=== PATIENT | female | born 1995 | race Caucasian/White ===

== ENCOUNTER 2023-11-18 14:50 | Outpatient (CLI) | payer OTHER | END 2023-11-18 16:34 | disposition home or self-care (01) | LOC: NST 14:50 | PROVIDERS: ATTEND Obstetrics & Gynecology Gynecology | DX: Z34.83 Encounter for supervision of other normal pregnancy, third trimester (principal) ==

== ENCOUNTER 2023-12-11 14:22 | Inpatient (IN) | payer OTHER ==
[~2023-12-11] VITALS: Ht 157.5 cm; Wt 74.8 kg
[2023-12-11] MEDS ORDERED: RINGERS SOLUTION,LACTATED 1,000 ML IV SCH (14:45)
[2023-12-11] MEDS ORDERED: PRENATAL TABLE1 EAC4 PO (15:07)
[2023-12-11 15:23] LABS: HEMATOCRIT 33.4 % (36.0-45.00); HEMOGLOBIN 11.1 g/dL (12.0-15.00); MEAN CORPUSCULAR HEMOGLOBIN 27.8 pg (27.00-32.0); MEAN CORPUSCULAR HGB CONC 33.1 g/dl (32.0-36.0); PLATELET COUNT 284 K/uL (150-450); RED BLOOD COUNT 3.97 M/uL (4.00-6.00); RED CELL DISTRIBUTION WIDTH 13.9 % (11.5-14.5)
[2023-12-11] MEDS ORDERED: CITRIC ACID/SODIUM CITRATE 30 ML BLIST.PACK PO STA (15:32)
[2023-12-11 15:43] LABS: INR 0.95; PARTIAL THROMBOPLASTIN TIME 29.3 SECONDS (22.0-34.0); PROTHROMBIN TIME 10.4 SECONDS (9.0-11.5)
[2023-12-11 15:49] LABS: ALBUMIN 2.5 gm/dL (3.4-5.0); BILIRUBIN TOTAL 0.28 mg/dL (0.3-1.2); CALCIUM 8.8 mg/dL (8.5-10.1); CREATININE SERUM 0.49 mg/dL (0.55-1.02); GFR 150.38; POTASSIUM 3.89 mEq/L (3.5-5.1); TOTAL PROTEIN 6.5 gm/dL (6.4-8.2)
[2023-12-11] MEDS ORDERED: OXYTOCIN 10 UNITS/ML VIAL ONE (16:12)
[2023-12-11] MEDS ORDERED: ERYTHROMYCIN BASE 1 GM TUBE OP ONE (16:13)
[2023-12-11] MEDS ORDERED: GENTAMICIN SULFATE 40 MG/ML VIAL IV SCH (17:00)
[2023-12-11] MEDS ORDERED: CLINDAMYCIN PHOSPHATE 900 MG in DEXTROSE 5 % IN WATER 100 ML IV SCH (17:00)
[2023-12-11] MEDS ORDERED: MORPHINE SULFATE 4 MG/ML VIAL IV ONE ×2 (20:40→21:10)
[2023-12-11] MEDS ORDERED: OXYTOCIN 20 UNITS/1000ML RL PIGGYBAG IV SCH (22:30)
[2023-12-12] MEDS ORDERED: KETOROLAC TROMETHAMINE 30 MG VIAL IM SCH
[2023-12-12] MEDS ORDERED: SIMETHICONE 125 MG CAPSULE PO SCH (01:00)
[2023-12-12] MEDS ORDERED: PROMETHAZINE HCL 25 MG/ML AMPUL IM SCH (01:00)
[2023-12-12] MEDS ORDERED: GENTAMICIN SULFATE 40 MG/ML VIAL IV SCH (01:00)
[2023-12-12] MEDS ORDERED: MEPERIDINE HCL/PF 50 MG/ML VIAL IM SCH (01:00)
[2023-12-12] MEDS ORDERED: CLINDAMYCIN PHOSPHATE 150 MG/ML (900mg) IV SCH (01:00)
[2023-12-12 01:11] LABS: MEAN CELL VOLUME 83.8 fL (80.00-100.00); MEAN CORPUSCULAR HGB CONC 33.8 g/dl (32.0-36.0); PLATELET COUNT 254 K/uL (150-450); RED BLOOD COUNT 3.58 M/uL (4.00-6.00)
[2023-12-12 01:15] LABS: HEMOGLOBIN 10.1 g/dL (12.0-15.00); MEAN CORPUSCULAR HEMOGLOBIN 28.2 pg (27.00-32.0)
[2023-12-12] MEDS ORDERED: OxyCODONE HCL/APAP UD (PERCOCET) PO SCH (09:00)
== END 2023-12-13 14:43 | disposition home or self-care (01) | DRG 788 ==
LOC: LDR 14:22 → OB/GYN 14:22 → O/R 18:20 → OB/GYN 19:54
PROVIDERS: ADMIT Obstetrics & Gynecology Maternal & Fetal Medicine; ATTEND Obstetrics & Gynecology Maternal & Fetal Medicine
PROC: 4A1HXCZ Monitoring of Products of Conception, Cardiac Rate, External Approach (ICD-10-PCS; 2023-12-11)
PROC: 10D00Z1 Extraction of Products of Conception, Low, Open Approach (ICD-10-PCS; principal; 2023-12-11 20:00)
DX: O32.1XX0 Maternal care for breech presentation, not applicable or unspecified (principal); Z3A.38 38 weeks gestation of pregnancy; Z37.0 Single live birth; Z20.822 Contact with and (suspected) exposure to COVID-19